=== PATIENT | male | born 1975 | race African-American/Black ===

== ENCOUNTER 2018-03-03 10:48 | Inpatient (IN) | payer OTHER ==
[2018-03-03 11:03] VITALS: BMI 21.0
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
[2018-03-03] MEDS ORDERED: guaiFENesin/D-METHORPHAN HB 10 ML UNIT-DOSE CUPS PO PRN (15:01)
[2018-03-03] MEDS ORDERED: chlordiazePOXIDE HCL 25 MG CAPSULE PO PRN (15:01)
[2018-03-03] MEDS ORDERED: P-EPHED 60MG/TRIPROLIDI 2.5MG TABLET PO PRN (15:01)
[2018-03-03] MEDS ORDERED: LOPERAMIDE HCL 2 MG CAPSULE PO PRN (15:01)
[2018-03-03] MEDS ORDERED: MENTHOL/PHENOL 1 EACH UD MM PRN (15:01)
[2018-03-03] MEDS ORDERED: MAG HYDROX/AL HYDROX/SIMETH 30 ML UNIT-DOSE CUP PO PRN (15:01)
[2018-03-03] MEDS ORDERED: ACETAMINOPHEN 325 MG TABLET (FP) PO PRN (15:01)
[2018-03-03] MEDS ORDERED: MAGNESIUM HYDROX 2400MG/30ML ORAL SUSPENSION 30 ML CUP PO PRN (15:01)
[2018-03-03] MEDS ORDERED: IBUPROFEN 400 MG TABLET (FP) PO PRN (15:01)
[2018-03-03] MEDS ORDERED: MAGNESIUM CITRATE 300 ML BOTTLE PO PRN (15:01)
[2018-03-03] MEDS ORDERED: chlordiazePOXIDE HCL 25 MG CAPSULE PO ONE (15:30)
[2018-03-03] MEDS: chlordiazePOXIDE HCL 25 MG CAPSULE PO SCH ×2 (16:42→22:16)
[2018-03-03] MEDS: NICOTINE 21 MG/24 HOURS TOPICAL PATCH TD SCH (16:45)
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
[2018-03-03] MEDS: QUEtiapine FUMARATE 100 MG TABLET (FP) PO SCH (22:16)
[2018-03-03] MEDS: THIAMINE HCL 100 MG TABLET (FP) PO SCH (22:16)
[2018-03-04] MEDS: chlordiazePOXIDE HCL 25 MG CAPSULE PO SCH ×4 (05:21→22:18)
[2018-03-04] MEDS: NICOTINE 21 MG/24 HOURS TOPICAL PATCH TD SCH (10:27)
[2018-03-04] MEDS: PRENATAL VITAMINS W/ FOLIC ACID TABLET (FP) PO SCH (10:27)
[2018-03-04 10:47] LABS: HEMATOCRIT 45.3 % (35.4-49); HEMOGLOBIN 15.2 GM/dL (11.7-16.9); MCH 31.2 pg (25.7-33.7); MCHC 33.4 g/dl (32.0-35.9); MEAN CELL VOLUME 93.3 fl (80-96); MEAN PLT VOLUME 9.6 fl (7.5-11.1); PLATELET COUNT 223 K/MM3 (134-434); RBC 4.86 M/mm3 (4.00-5.60); RDW 13.6 % (11.9-15.9); WHITE BLOOD COUNT 9.1 K/mm3 (4.0-10.0)
[2018-03-04 10:53] LABS: CHLORIDE 108 mmol/L (98-107); POTASSIUM 4.1 mmol/L (3.5-5.1); SODIUM 142 mmol/L (136-145)
[2018-03-04 10:59] LABS: ALBUMIN 4.3 g/dl (3.4-5.0); ALK PHOS 52 U/L (45-117); ANION GAP 8 (8-16); BILIRUBIN,TOTAL 0.5 mg/dL (0.2-1.0); BLOOD UREA NITROGEN 11 mg/dL (7-18); CALCIUM 9.5 mg/dL (8.5-10.1); CO2 26 mmol/L (21-32); CREATININE 1.1 mg/dL (0.7-1.3); GLUCOSE,RANDOM 115 mg/dL (74-106); SGOT/AST 22 U/L (15-37); SGPT/ALT 17 U/L (12-78); TOT PROT 7.6 g/dl (6.4-8.2)
--- NOTE | 2018-03-04 14:40 | EKG ---
Test Reason : Blood Pressure : / mmHG Vent. Rate : 063 BPM Atrial Rate : 063 BPM P-R Int : 152 ms QRS Dur : 084 ms QT Int : 394 ms P-R-T Axes : 073 075 067 degrees QTc Int : 403 ms NORMAL SINUS RHYTHM POSSIBLE LEFT ATRIAL ENLARGEMENT LEFT VENTRICULAR HYPERTROPHY ABNORMAL ECG NO PREVIOUS ECGS AVAILABLE Confirmed by MD Momo, Sedrick ([id number]) on 03/04/2018 2:39:45 PM Referred By: Confirmed By:Sedrick Barr MD
--- NOTE | 2018-03-04 15:45 | PN ---
S CIWA - CIWA Score Nausea/Vomitin-No Nausea/No Vomiting Muscle Tremors: 4-Moderate,w/Arms Extend Anxiety: 3 Agitation: 2 Paroxysmal Sweats: 3 Orientation: 0-Oriented Tacttile Disturbances: 0-None Auditory Disturbances: 2-Mild Harshness/Frighten Visual Disturbances: 3-Moderate Sensitivity Headache: 0-None Present CIWA-Ar Total Score: 17 BHS Progress Note (SOAP) Subjective: Sweating, Diarrhea, Fatigue, Tremors. Objective: PATIENT A & O X 3. NO ACUTE DISTRESS. 03/04/18 15:44 Vital Signs Temperature 98.3 F 03/04/18 13:23 Pulse Rate 76 03/04/18 13:23 Respiratory Rate 18 03/04/18 13:23 Blood Pressure 96/65 03/04/18 13:23 O2 Sat by Pulse Oximetry (%) Laboratory Tests 03/04/18 03/04/18 03/04/18 06:00 06:00 06:00 WBC 9.1 RBC 4.86 Hgb 15.2 Hct 45.3 MCV 93.3 MCH 31.2 MCHC 33.4 RDW 13.6 Plt Count 223 MPV 9.6 Sodium 142 Potassium 4.1 Chloride 108 H Carbon Dioxide 26 Anion Gap 8 BUN 11 Creatinine 1.1 Creat Clearance w eGFR > 60 Random Glucose 115 H Calcium 9.5 Total Bilirubin 0.5 AST 22 ALT 17 Alkaline Phosphatase 52 Total Protein 7.6 Albumin 4.3 RPR Titer Nonreactive LABS NOTED. UA RESULTS PENDING. 03/04/18 15:45 Assessment: 03/04/18 15:44 WITHDRAWAL SYMPTOMS. Plan: CONTINUE DETOX. INCREASE DAILY PO FLUID INTAKE.
[2018-03-04] MEDS: QUEtiapine FUMARATE 100 MG TABLET (FP) PO SCH (22:18)
[2018-03-04] MEDS: THIAMINE HCL 100 MG TABLET (FP) PO SCH (22:18)
[2018-03-05] MEDS: chlordiazePOXIDE HCL 25 MG CAPSULE PO SCH ×2 (05:27→10:51)
[2018-03-05] MEDS: NICOTINE 21 MG/24 HOURS TOPICAL PATCH TD SCH (10:51)
[2018-03-05] MEDS: PRENATAL VITAMINS W/ FOLIC ACID TABLET (FP) PO SCH (10:51)
--- NOTE | 2018-03-05 13:26 | PN ---
S CIWA - CIWA Score Nausea/Vomitin-No Nausea/No Vomiting Muscle Tremors: 1-None Visible, but [place] Anxiety: 5 Agitation: 5 Paroxysmal Sweats: 1-Minimal Palms Moist Orientation: 0-Oriented Tacttile Disturbances: 0-None Auditory Disturbances: 0-None Visual Disturbances: 0-None Headache: 0-None Present CIWA-Ar Total Score: 12 BHS Progress Note (SOAP) Subjective: EARLIER THIS MORNING DURING ROUNDS ABOUT 9:00 A.M PT REPORTS TO EMERGENCY ROOM TECHNICIAN HE HAS DROWSINESS WITH LIBRIUM AND BODY ACHES. INSTRUCTED PT TO REPORT SX TO HIS NURSE AND WILL NOT BE GIVEN LIBRIUM IN CASE OF DROWSINESS. PT WAS REMINDED TO INCREASE HYDRATION AND ASK FOR MOTRIN. PT VERBALIZED UNDERSTANDING AT TIME OF ROUNDING . ALERT O X 3. HOWEVER AT 10:00 A.M MEDICATION TIME, PT EXHIBITED ANGRY OUTBURST BECAUSE HE DOES NOT WANT TO BE CALLED TO MEDICATION WINDOW. Objective: 03/05/18 13:59 Vital Signs Temperature 97 F L 03/05/18 13:16 Pulse Rate 68 03/05/18 13:16 Respiratory Rate 18 03/05/18 13:16 Blood Pressure 103/66 03/05/18 13:16 O2 Sat by Pulse Oximetry (%) Laboratory Tests 03/04/18 03/04/18 03/04/18 06:00 06:00 06:00 WBC 9.1 RBC 4.86 Hgb 15.2 Hct 45.3 MCV 93.3 MCH 31.2 MCHC 33.4 RDW 13.6 Plt Count 223 MPV 9.6 Sodium 142 Potassium 4.1 Chloride 108 H Carbon Dioxide 26 Anion Gap 8 BUN 11 Creatinine 1.1 Creat Clearance w eGFR > 60 Random Glucose 115 H Calcium 9.5 Total Bilirubin 0.5 AST 22 ALT 17 Alkaline Phosphatase 52 Total Protein 7.6 Albumin 4.3 RPR Titer Nonreactive OTHER LABS PENDING Assessment: 03/05/18 13:59 WITHDRAWAL SX Plan: CONTINUE DETOX DR ESPARZA TO SEE PT AGAIN TODAY RE: AGRESSIVE BEHAVIOR/THREATS AND PACING ON HALLWAYS DURING MEDICATION TIME.
[2018-03-05] MEDS: chlordiazePOXIDE 5 MG CAPSULE PO SCH ×2 (16:58→22:26)
[2018-03-05] MEDS: QUEtiapine FUMARATE 100 MG TABLET (FP) PO SCH (22:25)
[2018-03-05] MEDS: THIAMINE HCL 100 MG TABLET (FP) PO SCH (22:26)
[2018-03-05] MEDS: MELATONIN 5 MG TABLETS PO PRN (22:26)
[2018-03-06] MEDS: chlordiazePOXIDE 5 MG CAPSULE PO SCH ×2 (06:07→10:14)
[2018-03-06] MEDS: NICOTINE 21 MG/24 HOURS TOPICAL PATCH TD SCH (10:14)
[2018-03-06] MEDS: PRENATAL VITAMINS W/ FOLIC ACID TABLET (FP) PO SCH (10:14)
--- NOTE | 2018-03-06 11:19 | PN ---
S Progress Note (SOAP) Subjective: PT IS CALM AND COMMUNICATED WELL THIS MORNING DURING ROUNDS. ALERT O X 3. NAD. AMBULATING ON THE UNIT WITH STEADY GAIT. Objective: 03/06/18 11:15 Vital Signs Temperature 97.7 F 03/06/18 09:30 Pulse Rate 79 03/06/18 09:30 Respiratory Rate 16 03/06/18 09:30 Blood Pressure 144/91 03/06/18 09:30 O2 Sat by Pulse Oximetry (%) Laboratory Last Values WBC 9.1 K/mm3 (4.0-10.0) 03/04/18 06:00 RBC 4.86 M/mm3 (4.00-5.60) 03/04/18 06:00 Hgb 15.2 GM/dL (11.7-16.9) 03/04/18 06:00 Hct 45.3 % (35.4-49) 03/04/18 06:00 MCV 93.3 fl (80-96) 03/04/18 06:00 MCH 31.2 pg (25.7-33.7) 03/04/18 06:00 MCHC 33.4 g/dl (32.0-35.9) 03/04/18 06:00 RDW 13.6 % (11.9-15.9) 03/04/18 06:00 Plt Count 223 K/MM3 (134-434) 03/04/18 06:00 MPV 9.6 fl (7.5-11.1) 03/04/18 06:00 Sodium 142 mmol/L (136-145) 03/04/18 06:00 Potassium 4.1 mmol/L (3.5-5.1) 03/04/18 06:00 Chloride 108 mmol/L (98-107) H 03/04/18 06:00 Carbon Dioxide 26 mmol/L (21-32) 03/04/18 06:00 Anion Gap 8 (8-16) 03/04/18 06:00 BUN 11 mg/dL (7-18) 03/04/18 06:00 Creatinine 1.1 mg/dL (0.7-1.3) 03/04/18 06:00 Creat Clearance w eGFR > 60 (>60) 03/04/18 06:00 Random Glucose 115 mg/dL (74-106) H 03/04/18 06:00 Calcium 9.5 mg/dL (8.5-10.1) 03/04/18 06:00 Total Bilirubin 0.5 mg/dL (0.2-1.0) 03/04/18 06:00 AST 22 U/L (15-37) 03/04/18 06:00 ALT 17 U/L (12-78) 03/04/18 06:00 Alkaline Phosphatase 52 U/L (45-117) 03/04/18 06:00 Total Protein 7.6 g/dl (6.4-8.2) 03/04/18 06:00 Albumin 4.3 g/dl (3.4-5.0) 03/04/18 06:00 RPR Titer Nonreactive (NONREACTIVE) 03/04/18 06:00 Assessment: 03/06/18 11:15 WITHDRAWAL SX Plan: CONTINUE DETOX INCREASE PO FLUIDS.
[2018-03-06] MEDS: chlordiazePOXIDE HCL 10 MG CAPSULE PO SCH ×2 (17:28→22:12)
--- NOTE | 2018-03-06 17:59 | PN ---
S Progress Note Note: Psychiatry Attending's note : Seroquel titrated to 200 mg po hs. Depakote 500 mg po bid. Added to the regimen for mood stabilization. Side effects/benefits discussed Patient agrees with plan of care.
[2018-03-06] MEDS: DIVALPROEX SODIUM 500 MG TABLET E.C. PO SCH (22:12)
[2018-03-06] MEDS: QUEtiapine FUMARATE 200 MG TABLET PO SCH (22:12)
[2018-03-06] MEDS: MELATONIN 5 MG TABLETS PO PRN (22:13)
[2018-03-07] MEDS: chlordiazePOXIDE HCL 10 MG CAPSULE PO SCH ×2 (06:00→10:28)
[2018-03-07 09:50] LABS: URINE APPEARANCE CLEAR; URINE BILIRUBIN NEGATIVE (<2.0 mg/dL); URINE COLOR LTYELLOW; URINE GLUCOSE (UA) NEGATIVE (NEGATIVE); URINE KETONE NEGATIVE (NEGATIVE); URINE LEUK ESTERASE NEGATIVE (NEGATIVE); URINE NITRITE NEGATIVE (NEGATIVE); URINE PROTEIN NEGATIVE (NEGATIVE); URINE UROBILINOGEN NEGATIVE mg/dL (0.2-1.0)
[2018-03-07] MEDS: PRENATAL VITAMINS W/ FOLIC ACID TABLET (FP) PO SCH (10:27)
[2018-03-07] MEDS: DIVALPROEX SODIUM 500 MG TABLET E.C. PO SCH ×2 (10:27→22:14)
[2018-03-07] MEDS: NICOTINE 21 MG/24 HOURS TOPICAL PATCH TD SCH (10:28)
--- NOTE | 2018-03-07 15:12 | PN ---
S Progress Note (SOAP) Subjective: ALERT O X 3. NAD. PT HELD TILL TOMORROW FOR DIRECT SUSTAINABLE SYSTEMS ANALYST BY [facility] IN THE MORNING DUE TO HOMELESSNESS AND NEED FOR SAFE DISCHARGE TO NEXT LEVEL OF CARE PER PT'S COUNSELOR ROGELIO RASMUSSEN. Objective: 03/07/18 15:09 Vital Signs 03/07/18 03/07/18 09:07 14:07 Temperature 95.9 F L 98.4 F Pulse Rate 64 78 Respiratory 16 18 Rate Blood Pressure 112/72 110/62 Laboratory Last Values WBC 9.1 K/mm3 (4.0-10.0) 03/04/18 06:00 RBC 4.86 M/mm3 (4.00-5.60) 03/04/18 06:00 Hgb 15.2 GM/dL (11.7-16.9) 03/04/18 06:00 Hct 45.3 % (35.4-49) 03/04/18 06:00 MCV 93.3 fl (80-96) 03/04/18 06:00 MCH 31.2 pg (25.7-33.7) 03/04/18 06:00 MCHC 33.4 g/dl (32.0-35.9) 03/04/18 06:00 RDW 13.6 % (11.9-15.9) 03/04/18 06:00 Plt Count 223 K/MM3 (134-434) 03/04/18 06:00 MPV 9.6 fl (7.5-11.1) 03/04/18 06:00 Sodium 142 mmol/L (136-145) 03/04/18 06:00 Potassium 4.1 mmol/L (3.5-5.1) 03/04/18 06:00 Chloride 108 mmol/L (98-107) H 03/04/18 06:00 Carbon Dioxide 26 mmol/L (21-32) 03/04/18 06:00 Anion Gap 8 (8-16) 03/04/18 06:00 BUN 11 mg/dL (7-18) 03/04/18 06:00 Creatinine 1.1 mg/dL (0.7-1.3) 03/04/18 06:00 Creat Clearance w eGFR > 60 (>60) 03/04/18 06:00 Random Glucose 115 mg/dL (74-106) H 03/04/18 06:00 Calcium 9.5 mg/dL (8.5-10.1) 03/04/18 06:00 Total Bilirubin 0.5 mg/dL (0.2-1.0) 03/04/18 06:00 AST 22 U/L (15-37) 03/04/18 06:00 ALT 17 U/L (12-78) 03/04/18 06:00 Alkaline Phosphatase 52 U/L (45-117) 03/04/18 06:00 Total Protein 7.6 g/dl (6.4-8.2) 03/04/18 06:00 Albumin 4.3 g/dl (3.4-5.0) 03/04/18 06:00 Urine Color Ltyellow 03/07/18 07:00 Urine Appearance Clear 03/07/18 07:00 Urine pH 7.0 (5.0-8.0) 03/07/18 07:00 Ur Specific [place] 1.013 (1.001-1.035) 03/07/18 07:00 Urine Protein Negative (NEGATIVE) 03/07/18 07:00 Urine Glucose (UA) Negative (NEGATIVE) 03/07/18 07:00 Urine Ketones Negative (NEGATIVE) 03/07/18 07:00 Urine Blood Negative (NEGATIVE) 03/07/18 07:00 Urine Nitrite Negative (NEGATIVE) 03/07/18 07:00 Urine Bilirubin Negative (<2.0 mg/dL) 03/07/18 07:00 Urine Urobilinogen Negative mg/dL (0.2-1.0) 03/07/18 07:00 Ur Leukocyte Esterase Negative (NEGATIVE) 03/07/18 07:00 RPR Titer Nonreactive (NONREACTIVE) 03/04/18 06:00 Assessment: 03/07/18 15:09 WITHDRAWAL SX Plan: PT TO BE D/C'D TO [facility] TOMORROW.
[2018-03-07] MEDS: QUEtiapine FUMARATE 200 MG TABLET PO SCH (22:14)
--- NOTE | 2018-03-08 08:41 | DS ---
[facility] Detox Discharge Summary Admission Date: 03/03/18 Discharge Date: 03/08/18 - History Present History: Alcohol Dependence, Cannabis Dependence Additional Comments: DETOX COMPLETED. ALERT O X 3. NAD. PT REPORTS PRIMARY CARE AT [facility]. Pertinent Past History: PLEASE SEE DX BELOW - Physical Exam Results Vital Signs: Vital Signs Temperature 96.9 F L 03/08/18 06:20 Pulse Rate 60 03/08/18 06:20 Respiratory Rate 18 03/08/18 06:20 Blood Pressure 90/65 03/08/18 06:20 O2 Sat by Pulse Oximetry (%) Pertinent Admission Physical Exam Findings: WITHDRAWAL SX Laboratory Tests 03/04/18 03/04/18 03/04/18 06:00 06:00 06:00 WBC 9.1 RBC 4.86 Hgb 15.2 Hct 45.3 MCV 93.3 MCH 31.2 MCHC 33.4 RDW 13.6 Plt Count 223 MPV 9.6 Sodium 142 Potassium 4.1 Chloride 108 H Carbon Dioxide 26 Anion Gap 8 BUN 11 Creatinine 1.1 Creat Clearance w eGFR > 60 Random Glucose 115 H Calcium 9.5 Total Bilirubin 0.5 AST 22 ALT 17 Alkaline Phosphatase 52 Total Protein 7.6 Albumin 4.3 Urine Color Urine Appearance Urine pH Ur Specific [place] Urine Protein Urine Glucose (UA) Urine Ketones Urine Blood Urine Nitrite Urine Bilirubin Urine Urobilinogen Ur Leukocyte Esterase RPR Titer Nonreactive 03/07/18 07:00 WBC RBC Hgb Hct MCV MCH MCHC RDW Plt Count MPV Sodium Potassium Chloride Carbon Dioxide Anion Gap BUN Creatinine Creat Clearance w eGFR Random Glucose Calcium Total Bilirubin AST ALT Alkaline Phosphatase Total Protein Albumin Urine Color Ltyellow Urine Appearance Clear Urine pH 7.0 Ur Specific [place] 1.013 Urine Protein Negative Urine Glucose (UA) Negative Urine Ketones Negative Urine Blood Negative Urine Nitrite Negative Urine Bilirubin Negative Urine Urobilinogen Negative Ur Leukocyte Esterase Negative RPR Titer - Treatment Hospital Course: Detox Protocol Followed, Detoxed Safely, Responded well, Discharged Condition Good, Rehab Referral Accepted Patient has Accepted a Rehab Referral to: [facility] - Medication Discharge Medications: Ambulatory Orders Divalproex [Depakote -] 500 mg PO BID 03/03/18 Escitalopram Oxalate [Lexapro -] 10 mg PO DAILY 03/03/18 Quetiapine Fumarate [Seroquel -] 100 mg PO AM 03/03/18 Quetiapine Fumarate [Seroquel -] 500 mg PO HS 03/03/18 Divalproex [Depakote -] 500 mg PO BID #60 tablet.ec 03/06/18 Quetiapine Fumarate [Seroquel -] 200 mg PO HS #30 tab 03/06/18 - Diagnosis (1) Alcohol dependence with uncomplicated withdrawal Current Visit: Yes Status: Acute (2) Cannabis dependence Current Visit: Yes Status: Acute (3) Insomnia Current Visit: Yes Status: Acute Qualifiers: Insomnia type: unspecified Qualified Code(s): G47.00 - Insomnia, unspecified (4) Nicotine dependence Current Visit: Yes Status: Acute Qualifiers: Nicotine product type: cigarettes Substance use status: in withdrawal Qualified Code(s): F17.213 - Nicotine dependence, cigarettes, with withdrawal (5) Weight loss Current Visit: Yes Status: Acute - AMA Did Patient Leave Against Medical Advice: No
--- NOTE | 2018-03-08 08:44 | PN ---
BHS Progress Note (SOAP) Subjective: DETOX COMPLETED. ALERT O X 3. NAD. PT WILL BE PICKED UP TODAY BY [facility] FOR REHAB AFTERCARE. Objective: 03/08/18 08:42 Vital Signs Temperature 96.9 F L 03/08/18 06:20 Pulse Rate 60 03/08/18 06:20 Respiratory Rate 18 03/08/18 06:20 Blood Pressure 90/65 03/08/18 06:20 O2 Sat by Pulse Oximetry (%) Laboratory Tests 03/04/18 03/04/18 03/04/18 06:00 06:00 06:00 WBC 9.1 RBC 4.86 Hgb 15.2 Hct 45.3 MCV 93.3 MCH 31.2 MCHC 33.4 RDW 13.6 Plt Count 223 MPV 9.6 Sodium 142 Potassium 4.1 Chloride 108 H Carbon Dioxide 26 Anion Gap 8 BUN 11 Creatinine 1.1 Creat Clearance w eGFR > 60 Random Glucose 115 H Calcium 9.5 Total Bilirubin 0.5 AST 22 ALT 17 Alkaline Phosphatase 52 Total Protein 7.6 Albumin 4.3 Urine Color Urine Appearance Urine pH Ur Specific [place] Urine Protein Urine Glucose (UA) Urine Ketones Urine Blood Urine Nitrite Urine Bilirubin Urine Urobilinogen Ur Leukocyte Esterase RPR Titer Nonreactive 03/07/18 07:00 WBC RBC Hgb Hct MCV MCH MCHC RDW Plt Count MPV Sodium Potassium Chloride Carbon Dioxide Anion Gap BUN Creatinine Creat Clearance w eGFR Random Glucose Calcium Total Bilirubin AST ALT Alkaline Phosphatase Total Protein Albumin Urine Color Ltyellow Urine Appearance Clear Urine pH 7.0 Ur Specific [place] 1.013 Urine Protein Negative Urine Glucose (UA) Negative Urine Ketones Negative Urine Blood Negative Urine Nitrite Negative Urine Bilirubin Negative Urine Urobilinogen Negative Ur Leukocyte Esterase Negative RPR Titer Assessment: 03/08/18 08:43 MEDICALLY STABLE Plan: D/C PT TODAY TO REHAB.
[2018-03-08 09:41] VITALS: BP 116/78; PULSE 109; TEMP 98.4
[2018-03-08] MEDS: DIVALPROEX SODIUM 500 MG TABLET E.C. PO SCH (10:30)
[2018-03-08] MEDS: PRENATAL VITAMINS W/ FOLIC ACID TABLET (FP) PO SCH (10:30)
[2018-03-08] MEDS: NICOTINE 21 MG/24 HOURS TOPICAL PATCH TD SCH (10:31)
== END 2018-03-08 12:30 | disposition home or self-care (01) | DRG 775 ==
LOC: YASAS 10:48 → Y3N 13:49
PROVIDERS: ADMIT Internal Medicine; ATTEND Internal Medicine
PROC: HZ2ZZZZ Detoxification Services for Substance Abuse Treatment (ICD-10-PCS; principal; 2018-03-08)
DX: F10.230 Alcohol dependence with withdrawal, uncomplicated (principal); F12.20 Cannabis dependence, uncomplicated; F17.213 Nicotine dependence, cigarettes, with withdrawal; F19.24 Other psychoactive substance dependence with psychoactive substance-induced mood disorder; F51.05 Insomnia due to other mental disorder; G47.00 Insomnia, unspecified; Z87.898 Personal history of other specified conditions; Z91.5 Personal history of self-harm
CPT/HCPCS: 36415; 80053; 81003; 85027; 86593; 93005; 93010